=== PATIENT | male | born 1990 | race Caucasian/White ===

== ENCOUNTER 2022-03-18 14:58 | Emergency (ER) | payer OTHER ==
[~2022-03-18] VITALS: Ht 175.3 cm; Wt 54.4 kg
[2022-03-18] MEDS ORDERED: Robaxin750 MG PO ×2 (15:46→18:00)
[2022-03-18] MEDS ORDERED: IBUP800 PO ×2 (15:46→18:00)
== END 2022-03-18 15:55 | disposition home or self-care (01) ==
LOC: ER 14:58
DX: M54.50 Low back pain, unspecified (principal); M54.6 Pain in thoracic spine; V89.2XXA Person injured in unspecified motor-vehicle accident, traffic, initial encounter
CPT/HCPCS: 96372; 99283-25; J1885

== ENCOUNTER → 2025-03-10 | Outpatient (CLI) | payer OTHER ==
[~2025-03-10] MED LIST: IBUP800 PO; Robaxin750 MG PO
== END | disposition home or self-care (01) ==
LOC: LAB SHORT 12:56 → LAB 12:56
DX: R31.0 Gross hematuria (principal)
CPT/HCPCS: 88108